=== PATIENT | female | born 1950 | race Caucasian/White ===

== ENCOUNTER → 2017-01-02 | Outpatient (CLI) | payer OTHER, BC ==
--- NOTE | 2017-01-02 13:58 | MAMMOGRAPHY REPORT ---
BILATERAL DIGITAL SCREENING MAMMOGRAM WITH CAD: 01/02/2017 CLINICAL HISTORY: Routine screening. Patient has no complaints. TECHNIQUE: Current study was also evaluated with a Computer Aided Detection (CAD) system. Bilateral CC and MLO views were obtained. COMPARISON: Comparison is made to exams dated: 01/01/2016 mammogram, 12/06/2013 mammogram - [facility], and 11/06/2008. BREAST COMPOSITION: The tissue of both breasts is extremely dense, which lowers the sensitivity of m ammography. FINDINGS: No suspicious masses, calcifications, or areas of architectural distortion are noted in ei ther breast. There has been no significant interval change compared to prior exams. IMPRESSION: ACR BI-RADS CATEGORY 1: NEGATIVE There is no mammographic evidence of malignancy. A 1 year screening mammogram is recommended. The pa tient will receive written notification of the results. Approximately 10% of breast cancers are not detected with mammography. A negative mammographic report should not delay biopsy if a clinically suggestive mass is present. Stacy Cuevas M.D. ah/:01/02/2017 09:20:35 Stores Clerk: Queenie Shore RT(R)(M)(BD), [facility] letter sent: Normal 1/2 BI-RADS Code: ACR BI-RADS Category 1: Negative
== END | disposition home or self-care (01) ==
LOC: C.MAMM 08:22
PROVIDERS: ATTEND Internal Medicine
DX: Z12.31 Encounter for screening mammogram for malignant neoplasm of breast (principal)

== ENCOUNTER → 2017-04-01 | Outpatient (CLI) | payer OTHER, BC ==
--- NOTE | 2017-04-02 07:51 | MAMMOGRAPHY REPORT ---
ULTRASOUND OF RIGHT BREAST: 04/01/2017 CLINICAL HISTORY: Two small enhancing masses seen within the right breast on recent [facility] MRI, [facility]. COMPARISON: Comparison is made to exams dated: 03/24/2017 breast MRI, 01/02/2017 mammogram, 01/01/2016 mammogram, 12/06/2013 mammogram - [facility], and 11/06/2008. TECHNIQUE: Real-time targeted ultrasound of the right breast was performed. FINDINGS: Real-time, high resolution targeted ultrasound was performed of the right breast in the re gion of the enhancing masses seen on recent breast MRI. Ultrasound was performed of the right lower outer quadrant including the 6:00 breast in the region of the 5 mm circumscribed enhancing, T2 hyperi ntense mass seen on the breast MRI. In the right breast at 8:30, 8 cm from the nipple, there is a ci rcumscribed oval 6 x 6 mm mass which has an echogenic fatty hilum, central vascularity, and a hypoech oic peripheral cortex. This mass correlates with one of the enhancing masses seen on the breast MRI. This is benign and has sonographic features of a normal intramammary lymph node. Additionally, thi s also had features of an intramammary lymph node on the breast MRI including circumscribed margins, T2 hyperintensity, and mixed kinetics. In the right breast at 1:00, 5 cm from the nipple, there is a circumscribed 4 x 5 mm mass which is pr edominately hyperechoic with a very thin peripheral hypoechoic cortex seen as well as central interna l vascularity. This corresponds with the other circumscribed enhancing 4 mm T2 hyperintense mass see n on the breast MRI. This mass is benign and has sonographic and MRI features of a morphologically n ormal intramammary lymph node. IMPRESSION: ACR BI-RADS CATEGORY 2: BENIGN Two morphologically normal intramammary lymph nodes in the right breast at 8:30 and 1:00 on ultrasoun d, which correspond with the circumscribed enhancing masses seen on the recent breast MRI. There is no sonographic evidence of malignancy. Return to annual mammogram screening schedule is recommended. Also recommend routine bilateral scree jhoana breast MRI in one year. The patient was verbally notified of the results. Stacy Cuevas M.D. /:04/01/2017 09:58:22 Attending Technologist: Lizy Johnson RT(R)(M), [facility] Isobutylene Operator Chief: Stacy Cuevas MD, [facility] letter sent: Normal 1/2 BI-RADS Code: ACR BI-RADS Category 2: Benign
== END | disposition home or self-care (01) ==
LOC: C.MAMM 09:21
PROVIDERS: ATTEND Surgery
DX: N63.0 Unspecified lump in unspecified breast (principal)

== ENCOUNTER → 2018-01-05 | Outpatient (CLI) | payer OTHER, BC ==
--- NOTE | 2018-01-05 14:58 | MAMMOGRAPHY REPORT ---
BILATERAL DIGITAL SCREENING MAMMOGRAM TOMOSYNTHESIS WITH CAD: 01/05/2018 CLINICAL HISTORY: Routine screening. Patient has no complaints. TECHNIQUE: The study was acquired using full field digital technology and interpreted from soft copy. Breast tomosynthesis in addition to standard 2D mammography was performed. Current study was also ev aluated with a Computer Aided Detection (CAD) system. COMPARISON: Comparison is made to exams dated: 01/02/2017 mammogram, 01/01/2016 mammogram, 04/01/2017 ul trasound, 03/24/2017 breast MRI, 12/06/2013 mammogram - [facility], and 11/06/2008. BREAST COMPOSITION: The tissue of both breasts is extremely dense, which lowers the sensitivity of ma mmography. FINDINGS: There are stable coarse calcifications in the superior posterior right breast on the MLO vi ew. No obvious new mass, architectural distortion or cluster of microcalcifications is seen. IMPRESSION: ACR BI-RADS CATEGORY 1: NEGATIVE There is no mammographic evidence of malignancy. A 1 year screening mammogram is recommended.( [id number]) The patient will receive written notification of the results. Some breast cancers are not detected with mammography. A negative mammographic report should not joseph y biopsy if a clinically suggestive mass is present. Roslyn Craig M.D. ay/:01/05/2018 09:30:24 [employer]a Internship: RT Sudha(Mushtaq)(Isabella), [facility] letter sent: Normal 1/2 BI-RADS Code: ACR BI-RADS Category 1: Negative
== END | disposition home or self-care (01) ==
LOC: C.MAMM 08:54
PROVIDERS: ATTEND Internal Medicine
DX: Z12.31 Encounter for screening mammogram for malignant neoplasm of breast (principal)